=== PATIENT | female | born 1965 ===

== ENCOUNTER → 2017-07-12 | Outpatient (CLI) | payer BC ==
[~2017-07-12] MED LIST: Abilify5 MG PO; Alprazolam1 MG PO; Amlodipine Besyl5 MG PO; Amox Tr-K Clv1 EAC1 PO; Benazepril HCl10 MG PO; ESCITALOPRAM OX20 MG PO; Hydrocodone Bt1 EACH PO; METTREX2.5 PO
== END | disposition home or self-care (01) ==
LOC: LAB SHORT 14:10 → LAB 14:10
DX: L08.0 Pyoderma (principal)
CPT/HCPCS: 87070; 87106; 87205